=== PATIENT | female | born 1955 | race African-American/Black ===

== ENCOUNTER 2018-02-15 17:47 | Emergency (ER) | payer OTHER ==
[~2018-02-15] VITALS: Ht 162.6 cm; Wt 119.3 kg
--- NOTE | 2018-02-15 17:51 | PHYS DOC ---
Adult General Chief Complaint Chief Complaint: Palpitations HPI HPI Patient is a 62 year old female who presents with dyspnea with exertion and palpitations. has a known history of high blood pressure and diabetes. She recently began following with Dr. Zhang here at [facility]. She was also recently placed on a new blood pressure medication which she has not picked up and started taking yet. She presents to the ER today complaining of palpitations and dyspnea with exertion. She has been having symptoms over the last 3-5 days. Her symptoms seem to be worsening. With activity, she becomes significantly short of breath and has palpitations as well. She does not have chest pain. She does have some lower extremity edema which she reports to be chronic. She does not have worsening orthopnea but normally sleeps on 2 pillows at night. Her symptoms resolved when she is at rest. The patient reports a similar episode several years earlier when she was told her blood pressure medications were causing the problem. Additionally, the patient has a history of lupus. She had previously been treated any years earlier for extensive pulmonary embolus and was on Coumadin for 5 years following that. Review of Systems Review of Systems Constitutional: Denies fever Eyes: Denies change in visual acuity HENT: Denies nasal congestion Respiratory: Denies cough or shortness of breath Cardiovascular: No additional information not addressed in HPI GI: Denies abdominal pain : Denies dysuria Musculoskeletal: Denies back pain Integument: Denies rash or skin lesions Neurologic: Denies headache, focal weakness Endocrine: Denies polyuria All other systems were reviewed and found to be within normal limits, except as documented in this note. Current Medications Current Medications Current Medications Medications (Trade) Dose Ordered Sig/Jayna Start Time Stop Time Status Last Admin Dose Admin Acetaminophen (Tylenol) 650 mg PRN Q4HRS PRN 02/15/18 21:00 02/15/18 22:05 DC Info (CONTRAST GIVEN -- Rx MONITORING) 1 each PRN DAILY PRN 02/15/18 20:00 02/15/18 22:16 DC Iohexol (Omnipaque 300 Mg/ml) 75 ml 1X ONCE 02/15/18 19:45 02/15/18 19:46 DC 02/15/18 20:15 75 ML Sodium Chloride 500 ml @ 500 mls/hr 1X ONCE 02/15/18 19:45 02/15/18 20:44 DC 02/15/18 19:43 500 MLS/HR Allergies Allergies Allergies Coded Allergies Type Severity Reaction Last Updated Verified No Known Drug Allergies 02/15/18 No Physical Exam Physical Exam Constitutional: Well developed, well nourished, no acute distress, non-toxic appearance HENT: Normocephalic, atraumatic, bilateral external ears normal Eyes: PERRLA, EOMI, conjunctiva normal Neck: Normal range of motion, no tenderness Cardiovascular:Heart rate regular rhythm, no murmur Lungs & Thorax: Bilateral breath sounds clear Abdomen: Bowel sounds normal, soft Skin: Warm, dry Back: No tenderness Extremities: No tenderness, 1+ edema bilateral LE's Neurologic: Alert and oriented X 3 Psychologic: Affect normal Current Patient Data Vital Signs Vital Signs Date Time Temp Pulse Resp B/P (MAP) Pulse Ox O2 Delivery O2 Flow Rate FiO2 02/15/18 22:15 66 18 167/96 (119) 96 02/15/18 18:38 98.9 Room Air 98.9 Lab Values Laboratory Tests Test 02/15/18 18:30 White Blood Count 10.6 x10^3/uL (4.0-11.0) Red Blood Count 4.52 x10^6/uL (3.50-5.40) Hemoglobin 12.0 g/dL (12.0-15.5) Hematocrit 35.8 % (36.0-47.0) L Mean Corpuscular Volume 79 fL (79-100) Mean Corpuscular Hemoglobin 27 pg (25-35) Mean Corpuscular Hemoglobin Concent 33 g/dL (31-37) Red Cell Distribution Width 17.1 % (11.5-14.5) H Platelet Count 327 x10^3/uL (140-400) Neutrophils (%) (Auto) 68 % (31-73) Lymphocytes (%) (Auto) 22 % (24-48) L Monocytes (%) (Auto) 6 % (0-9) Eosinophils (%) (Auto) 3 % (0-3) Basophils (%) (Auto) 1 % (0-3) Neutrophils # (Auto) 7.2 x10^3uL (1.8-7.7) Lymphocytes # (Auto) 2.3 x10^3/uL (1.0-4.8) Monocytes # (Auto) 0.6 x10^3/uL (0.0-1.1) Eosinophils # (Auto) 0.3 x10^3/uL (0.0-0.7) Basophils # (Auto) 0.1 x10^3/uL (0.0-0.2) Prothrombin Time 13.6 SEC (11.7-14.0) Prothrombin Time INR 1.1 (0.8-1.1) PTT 28 SEC (24-38) Sodium Level 140 mmol/L (136-145) Potassium Level 3.8 mmol/L (3.5-5.1) Chloride Level 108 mmol/L (98-107) H Carbon Dioxide Level 28 mmol/L (21-32) Anion Gap 4 (6-14) L Blood Urea Nitrogen 14 mg/dL (7-20) Creatinine 0.9 mg/dL (0.6-1.0) Estimated GFR (Cockcroft-Gault) 76.3 Glucose Level 148 mg/dL (70-99) H Calcium Level 9.1 mg/dL (8.5-10.1) Magnesium Level 2.2 mg/dL (1.8-2.4) Troponin I Quantitative 0.017 ng/mL (0.000-0.055) AW-Abb-S-Type Natriuretic Peptide 243 pg/mL (0-124) H Thyroid Stimulating Hormone (TSH) 1.149 uIU/mL (0.358-3.74) Laboratory Tests 02/15/18 18:30 Laboratory Tests 02/15/18 18:30 EKG EKG NSR, rate 78 Interpretation Time: 17:54 Radiology/Procedures Radiology/Procedures CT angio chest: no acute PE. No acute findings Course & Med Decision Making Course & Med Decision Making Pertinent Labs and Imaging studies reviewed. (See chart for details) Patient is seen and examined. Given her hx of PE, CTA will be ordered pending Cr evaluation. No chest pain now or by hx. 21:30: Patient was observed in the emergency department for several hours. She was remained in normal sinus rhythm and free from symptoms. Her initial blood pressures were in the 170s and 180s systolic. At discharge, her pressure was 158 systolic. She was not given medication for hypertension in the ER. Her workup was essentially negative. Her troponin was not elevated. Her EKG was nonacute. Her CT did not reveal pulmonary embolus. Consideration is given for admission and consults are placed for cardiology and pulmonology but ultimately , the patient decided she did not want to stay in the hospital. I think it is okay for her to be discharged home given that she feels confident she can have close follow-up with her primary care doctor this week. She will return to the ER for any new or worsening symptoms. Dragon Disclaimer Dragon Disclaimer This electronic medical record was generated, in whole or in part, using a voice recognition dictation system. KASSIE KUNZ DO Feb 15, 2018 17:51
--- NOTE | 2018-02-15 18:19 | EKG ---
[facility] [address] [place] [id number] Test Date: 2018-02-15 Test Time: 17:53:37 Pat Name: MARCO ISAAC Department: Room: Gender: F Health And Wellness Director: : 1955 Requested By: KASSIE KUNZ Order Number: [id number] Reading MD: Maverick Denis MD Measurements Intervals [place] Rate: 78 P: 28 LA: 178 QRS: -16 QRSD: 94 T: 5 QT: 402 QTc: 462 Interpretive Statements SINUS RHYTHM Electronically Signed On 02-18-2018 15:16:59 CDT by Maverick Denis MD
[2018-02-15 18:42] LABS: BASO # 0.1 x10^3/uL (0.0-0.2); BASO % 1 % (0-3); EOS # 0.3 x10^3/uL (0.0-0.7); EOS % 3 % (0-3); HEMATOCRIT 35.8 % (36.0-47.0); LYMPH # 2.3 x10^3/uL (1.0-4.8); LYMPH % 22 % (24-48); MEAN CORPUSCULAR HEMOGLOBIN 27 pg (25-35); MEAN CORPUSCULAR HGB CONC 33 g/dL (31-37); MEAN CORPUSCULAR VOLUME 79 fL (79-100); MONO # 0.6 x10^3/uL (0.0-1.1); MONO % 6 % (0-9); NEUT # 7.2 x10^3uL (1.8-7.7); NEUT % 68 % (31-73); PLATELET COUNT 327 x10^3/uL (140-400); RED BLOOD COUNT 4.52 x10^6/uL (3.50-5.40); RED CELL DISTRIBUTION WIDTH 17.1 % (11.5-14.5); WHITE BLOOD COUNT 10.6 x10^3/uL (4.0-11.0)
[2018-02-15 18:54] LABS: PROTHROMBIN TIME PATIENT 13.6 SEC (11.7-14.0)
[2018-02-15 19:05] LABS: CALCIUM 9.1 mg/dL (8.5-10.1); CREATININE 0.9 mg/dL (0.6-1.0); GFR 76.3; POTASSIUM 3.8 mmol/L (3.5-5.1)
[2018-02-15 19:06] LABS: MAGNESIUM 2.2 mg/dL (1.8-2.4)
[2018-02-15] MEDS ORDERED: IV NORMAL SALINE 500ML BAG 500 ML IV ONE (19:45)
[2018-02-15] MEDS ORDERED: IOHEXOL 300 MG/ML 100ML VIAL. IV ONE (19:45)
[2018-02-15] MEDS ORDERED: CONTRAST GIVEN. MC PRN (20:00)
[2018-02-15] MEDS ORDERED: ACETAMINOPHEN 325 MG TABLET. PO PRN (21:00)
--- NOTE | 2018-02-15 21:34 | RAD ---
CTA Chest with contrast: Clinical History: CP SOA H/O PE H/O LUPUS INJ 75ML OMNI 300 NO PREV Shortness of breath. Axial helical images of the chest were obtained after the administration of 100 cc of IV Isovue-370 and timed appropriately for a pulmonary arterial study. Conventional axial reconstruction was performed in addition to coronal, sagittal and bilateral oblique MIP (maximum intensity projection). This study was ordered to detect possible pulmonary embolism. There are no filling defects to suggest pulmonary embolism. There is a few tiny calcified granuloma. The lungs and pleural margins are clear. There is no mediastinal or hilar lymphadenopathy. The thoracic aorta appears normal. Impression: 1. No evidence of pulmonary embolism. 2. No significant findings. PQRS Compliance Statement: One or more of the following individualized dose reduction techniques were utilized for this examination: 1. Automated exposure control 2. Adjustment of the mA and/or kV according to patient size 3. Use of iterative reconstruction technique Electronically signed by: Murphy Cunningham III, MD (02/15/2018 9:30 PM) [facility]
[2018-02-15 22:15] VITALS: BP 167/96
== END 2018-02-15 22:15 | disposition home or self-care (01) ==
LOC: ER 17:47
DX: R06.00 Dyspnea, unspecified (principal); R00.2 Palpitations; R60.0 Localized edema; G89.29 Other chronic pain; E11.9 Type 2 diabetes mellitus without complications
CPT/HCPCS: 36415; 71275; 80048; 83735; 83880; 84443; 84484; 85025; 85610; 85730; 93005; 99285; J7040; Q9967; 96360

== ENCOUNTER → 2019-04-05 | Outpatient (CLI) | payer OTHER ==
[~2019-04-05] MED LIST: IOHEXOL 240 MG/ML 50ML VIAL. PO ONE; IOHEXOL 300 MG/ML 100ML VIAL. IV ONE
--- NOTE | 2019-04-05 13:17 | RAD ---
Examination: CT ABD PELV W/ORAL IV CONTRAST History: Abdominal pain Comparison/Correlation: None Findings: Axial images of the abdomen and pelvis were obtained following IV contrast. Sagittal and coronal reformatted images were provided. Oral contrast was utilized. Calcified granulomas involve the right lung base. Gastric lap band is seen. Suture material is identified at the epigastric region in this patient with findings of gastric bypass. Distended loop of small bowel the left flank region is notable with diameter of up to 7.2 cm. this may be the result of previous surgical intervention. Segmental wall thickening of small bowel distal to the dilated segment is evident with a length of 5 cm. No surrounding stranding. No solid mass lesion. Contrast is noted within small bowel distal to this point. No extraluminal gas. No enlarged abdominal or pelvic lymph nodes. Bladder is unremarkable. No acute bony process. Impression: Postoperative findings. Distention of a left flank small bowel segment is notable and may relate to previous surgical history. No obstruction identified however. No acute inflammatory process. PQRS Compliance Statement: One or more of the following individualized dose reduction techniques were utilized for this examination: 1. Automated exposure control 2. Adjustment of the mA and/or kV according to patient size 3. Use of iterative reconstruction technique Electronically signed by: Celio Talbert MD (04/05/2019 1:14 PM) [facility]
== END | disposition home or self-care (01) ==
LOC: CT 09:53
PROVIDERS: ATTEND Internal Medicine
DX: K31.89 Other diseases of stomach and duodenum (principal); J84.10 Pulmonary fibrosis, unspecified; Z98.84 Bariatric surgery status
CPT/HCPCS: 74177; Q9966; Q9967